=== PATIENT | female | born 1935 | race Caucasian/White ===

== ENCOUNTER → 2016-04-23 | Outpatient (CLI) | payer OTHER | LOC: KOH-I 14:28 | DX: J41.0 Simple chronic bronchitis (principal); J43.9 Emphysema, unspecified | CPT/HCPCS: 71020 ==

== ENCOUNTER → 2020-05-04 | Outpatient (CLI) | payer OTHER ==
[~2020-05-04] MED LIST: BENADRYL 50MG C50 MG PO; CALTRATE 600+D1 EAC1 PO; CELLCEPT500 MG PO; CIPRO500 MG PO; COLACE 100MG C100 MG PO; DIOVAN40 MG PO; DULCOLAX10 MG PR; ECOTRIN81 MG PO; ELIQUIS2.5 MG PO; FLAGYL500 MG PO; FLONASE 0.05% N16 GM; GENGRAF25 MG PO; HYGROTON TAB 2525 MG PO; K-DUR TAB 10 M10 MEQ PO; KEPPRA 500 MG500 MG PO; KLOR-CON 88 MEQ PO; LIPITOR TAB 1010 MG PO; LOPRESSOR 25 MG25 MG PO; LOPRESSOR50 MG PO; LOSARTAN POTASS25 MG PO; MAGNESIUM400 MG PO; MINERAL OIL473 ML PO; NORCO 5-325 TA1 EACH PO; NORVASC 5 MG TAB5 MG PO; OCUVITE WITH L1 EACH PO; OMEPRAZOLE20 MG PO; RENAL CAPS SOFTG1 MG PO; SYNTHROID 50 M50 MCG PO; SYNTHROID75 MCG PO; TYLENOL325 MG PO
== END ==
LOC: KOH-I 14:13
DX: D50.9 Iron deficiency anemia, unspecified (principal); R63.4 Abnormal weight loss; N26.1 Atrophy of kidney (terminal); N20.0 Calculus of kidney; K57.30 Diverticulosis of large intestine without perforation or abscess without bleeding; Z94.0 Kidney transplant status
CPT/HCPCS: 74176

== ENCOUNTER → 2020-05-10 | Outpatient (CLI) | payer OTHER ==
[~2020-05-10] VITALS: Ht 160 cm; Wt 51.3 kg
== END ==
LOC: OPSV 11:37
DX: D50.9 Iron deficiency anemia, unspecified (principal); R63.4 Abnormal weight loss; N18.30 Chronic kidney disease, stage 3 unspecified
CPT/HCPCS: 96365; J1756

== ENCOUNTER → 2020-05-15 | Outpatient (CLI) | payer OTHER ==
[~2020-05-15] VITALS: Ht 160 cm; Wt 51.3 kg
== END ==
LOC: OPSV 10:57
DX: D50.9 Iron deficiency anemia, unspecified (principal); N18.30 Chronic kidney disease, stage 3 unspecified; R63.4 Abnormal weight loss
CPT/HCPCS: 96365; J1756

== ENCOUNTER → 2020-05-17 | Outpatient (CLI) | payer OTHER | LOC: OPSV 11:00 | DX: D50.9 Iron deficiency anemia, unspecified (principal); N18.30 Chronic kidney disease, stage 3 unspecified; R63.4 Abnormal weight loss | CPT/HCPCS: 96365; J1756 ==

== ENCOUNTER → 2020-05-22 | Outpatient (CLI) | payer OTHER | LOC: OPSV 11:00 | DX: D50.9 Iron deficiency anemia, unspecified (principal); N18.30 Chronic kidney disease, stage 3 unspecified; R63.4 Abnormal weight loss | CPT/HCPCS: 96365; J1756 ==

== ENCOUNTER → 2020-05-24 | Outpatient (CLI) | payer OTHER ==
[~2020-05-24] VITALS: Ht 160 cm; Wt 51.3 kg
== END ==
LOC: OPSV 11:00
DX: D50.9 Iron deficiency anemia, unspecified (principal); R63.4 Abnormal weight loss; N18.30 Chronic kidney disease, stage 3 unspecified
CPT/HCPCS: 96365; J1756

== ENCOUNTER → 2020-05-30 | Day surgery (SDC) | payer OTHER | END | disposition home or self-care (01) | LOC: OR 07:03 | DX: K29.50 Unspecified chronic gastritis without bleeding (principal); D50.9 Iron deficiency anemia, unspecified; K44.9 Diaphragmatic hernia without obstruction or gangrene; K64.8 Other hemorrhoids; E03.9 Hypothyroidism, unspecified; E78.5 Hyperlipidemia, unspecified; K21.9 Gastro-esophageal reflux disease without esophagitis; I10 Essential (primary) hypertension; R63.4 Abnormal weight loss | CPT/HCPCS: 88342; J2704; J7040 ==

== ENCOUNTER → 2020-11-12 | Outpatient (CLI) | payer OTHER | LOC: MRI 13:31 | DX: K14.8 Other diseases of tongue (principal); K13.70 Unspecified lesions of oral mucosa | CPT/HCPCS: 36415; 70543; 82565; A9577 ==

== ENCOUNTER → 2020-12-03 | Outpatient (CLI) | payer OTHER ==
[~2020-12-03] MED LIST changes: +CELLCEPT250 MG PO; -CELLCEPT500 MG PO; +[UNRECOGNIZED DRUG - OTHER] PO
== END ==
LOC: OPSV2 11:00
DX: Z01.810 Encounter for preprocedural cardiovascular examination (principal); I48.20 Chronic atrial fibrillation, unspecified; G45.8 Other transient cerebral ischemic attacks and related syndromes
CPT/HCPCS: 93005

== ENCOUNTER → 2020-12-14 | Day surgery (SDC) | payer OTHER ==
[2020-12-14 11:07] LABS: HEMOGLOBIN 12.7 gm/dl (12.3-15.3); RED BLOOD COUNT 4.2 M/UL (4.00-5.10); WHITE BLOOD COUNT 4.8 K/UL (4.5-11.0)
== END | disposition home or self-care (01) ==
LOC: OR 09:30
PROVIDERS: Dentist Oral and Maxillofacial Surgery
DX: K14.8 Other diseases of tongue (principal); I10 Essential (primary) hypertension; I48.91 Unspecified atrial fibrillation; E78.5 Hyperlipidemia, unspecified; K21.9 Gastro-esophageal reflux disease without esophagitis; M19.90 Unspecified osteoarthritis, unspecified site; E03.9 Hypothyroidism, unspecified; Z79.01 Long term (current) use of anticoagulants; Z79.899 Other long term (current) drug therapy; Z88.1 Allergy status to other antibiotic agents; Z88.8 Allergy status to other drugs, medicaments and biological substances
CPT/HCPCS: 36415; 80048; 85027; J0295; J1100; J2001; J2405; J2704; J3010; J7120

== ENCOUNTER 2021-06-16 10:44 | Inpatient (IN) | payer OTHER ==
[~2021-06-16] VITALS: Ht 162.6 cm; Wt 53.5 kg
[~2021-06-16 10:44] MED LIST changes: -ELIQUIS2.5 MG PO
[2021-06-16 11:22] LABS: HEMOGLOBIN 13.2 gm/dl (12.3-15.3); RED BLOOD COUNT 4.34 M/UL (4.00-5.10); WHITE BLOOD COUNT 7.1 K/UL (4.5-11.0)
[2021-06-16 11:45] LABS: BUN/CREATININE RATIO 19 (0-10)
[2021-06-16] MEDS ORDERED: FLONASE 0.05% N16 GM (13:59)
[2021-06-16] MEDS ORDERED: RENA-VITE RX T1 EACH PO (14:01)
[2021-06-16] MEDS ORDERED: LOPRESSOR 25 MG25 MG PO (14:09)
[2021-06-16] MEDS ORDERED: ECOTRIN81 MG PO (14:10)
[2021-06-16] MEDS ORDERED: COZAAR 25MG TAB25 MG PO (14:10)
[2021-06-16] MEDS ORDERED: EYE MULTIVITAM1 EAC1 PO (14:14)
[2021-06-16] MEDS ORDERED: CLARITIN10 MG PO (14:18)
--- NOTE | 2021-06-16 14:44 | NUR ---
FAMILY STATED THEY WOULD BRING PATIENT'S ANTIREJECTION MEDICATIONS FROM HOME PATIENT HAS HISTORY OF KIDNEY TRANSPLANT.
[2021-06-16] MEDS ORDERED: ELIQUIS2.5 MG PO (16:12)
--- NOTE | 2021-06-17 01:37 | NUR ---
MADE AWARE OF HR 130, BP 169/91 MD GAVE ORDERS FOR LOVENOX EKG LOPRESSOR 5 MG IVP X2 DOSES ORDERD WCTM...
[2021-06-17 01:55] LABS: HEMOGLOBIN 12.8 gm/dl (12.3-15.3); RED BLOOD COUNT 4.3 M/UL (4.00-5.10); WHITE BLOOD COUNT 8.5 K/UL (4.5-11.0)
[2021-06-17 02:39] LABS: BUN/CREATININE RATIO 15 (0-10)
--- NOTE | 2021-06-17 09:16 | NUR ---
checked pulse several times via telemetry and raning 70's at this time
[2021-06-18 03:21] LABS: HEMOGLOBIN 11.7 gm/dl (12.3-15.3); RED BLOOD COUNT 3.97 M/UL (4.00-5.10); WHITE BLOOD COUNT 7.1 K/UL (4.5-11.0)
[2021-06-19] MEDS ORDERED: MACRODANTIN100 MG PO (12:21)
[2021-06-19] MEDS ORDERED: LIDOCAINE1 EAC1 TP (12:31)
== END 2021-06-19 14:55 | disposition home or self-care (01) | DRG 917 ==
LOC: ER1 10:44 → CDU 12:55 → M/S 12:55
PROVIDERS: Family Medicine; Physician Assistant Medical; ADMIT Internal Medicine
DX: T42.8X1A Poisoning by antiparkinsonism drugs and other central muscle-tone depressants, accidental (unintentional), initial encounter (principal); G92.8 Other toxic encephalopathy; Z20.822 Contact with and (suspected) exposure to COVID-19; N30.00 Acute cystitis without hematuria; E87.1 Hypo-osmolality and hyponatremia; Z94.0 Kidney transplant status; D84.9 Immunodeficiency, unspecified; N17.9 Acute kidney failure, unspecified; K44.9 Diaphragmatic hernia without obstruction or gangrene; K64.9 Unspecified hemorrhoids; D50.0 Iron deficiency anemia secondary to blood loss (chronic); E83.42 Hypomagnesemia; I10 Essential (primary) hypertension; E78.5 Hyperlipidemia, unspecified; B95.2 Enterococcus as the cause of diseases classified elsewhere; I12.9 Hypertensive chronic kidney disease with stage 1 through stage 4 chronic kidney disease, or unspecified chronic kidney disease; N18.30 Chronic kidney disease, stage 3 unspecified; E87.6 Hypokalemia; Z79.01 Long term (current) use of anticoagulants; Z79.82 Long term (current) use of aspirin; Z90.49 Acquired absence of other specified parts of digestive tract; Z87.19 Personal history of other diseases of the digestive system; Z90.710 Acquired absence of both cervix and uterus; Z98.890 Other specified postprocedural states; Z80.0 Family history of malignant neoplasm of digestive organs; Z87.11 Personal history of peptic ulcer disease; Z87.440 Personal history of urinary (tract) infections
CPT/HCPCS: 0240U; 36415; 70450; 71045; 80048; 80053; 80202; 81001; 82550; 82553; 83605; 83735; 84100; 84132; 84484; 85025; 85027; 87040; 87077; 87086; 87186; 92526; 92610; 93005; 96374; 96375; 96376; 97116; 97116-GP-CQ; 97162; 99285; G0378; J0696; J1956; J3370; J3475; J7030; J7070; J7517

== ENCOUNTER → 2021-06-27 | Outpatient (CLI) | payer OTHER ==
[~2021-06-27] MED LIST changes: +CLARITIN10 MG PO; +COZAAR 25MG TAB25 MG PO; +ELIQUIS2.5 MG PO; +EYE MULTIVITAM1 EAC1 PO; +LIDOCAINE1 EAC1 TP; +MACRODANTIN100 MG PO; +RENA-VITE RX T1 EACH PO
== END ==
LOC: KOH-I 09:51
DX: M54.6 Pain in thoracic spine (principal); M47.814 Spondylosis without myelopathy or radiculopathy, thoracic region; M47.812 Spondylosis without myelopathy or radiculopathy, cervical region
CPT/HCPCS: 72070